=== PATIENT | female | born 1965 | race Asian ===

== ENCOUNTER 2019-08-27 17:24 | Emergency (ER) | payer MEDICAID ==
--- NOTE | 2019-08-27 18:05 | ER Document Report ---
ED General - General Chief Complaint: Back Pain Stated Complaint: BACK PAIN Time Seen by Provider: 08/27/19 18:01 Primary Care Provider: TONE HERNANDEZ PA-C [NO LOCAL MD] - Follow up in 1 week TRAVEL OUTSIDE OF THE [place] IN LAST 30 DAYS: No - HPI Notes: 54-year-old female to the emergency department with complaints of upper and low back pain as well as left knee pain after she sustained a fall today just prior to arrival. She states that she is going to go sit on a bench but she missed the bench and fell backwards onto her back. She admits that she has a slight headache with this. She denies neck pain. She denies loss of consciousness. She denies bladder or bowel dysfunction. She denies saddle paresthesia. She states that it hurts more when she walks. She has not taken anything prior to arrival for pain. She denies numbness and tingling down her leg. - Related Data Allergies/Adverse Reactions: No Known Allergies Allergy (Unverified 08/27/19 19:44) Past Medical History - General Information source: Patient - Social History Smoking Status: Never Smoker Frequency of alcohol use: None Drug Abuse: None Family History: Reviewed & Not Pertinent Review of Systems - Review of Systems Constitutional: denies: Chills, Fever EENT: No symptoms reported Cardiovascular: denies: Chest pain, Palpitations, Heart racing, Syncope Respiratory: denies: Cough, Short of breath Gastrointestinal: denies: Abdominal pain, Diarrhea, Nausea, Vomiting Genitourinary: denies: Burning, Flank pain, Incontinence, Retention Musculoskeletal: Back pain, Joint pain - left knee pain. thoracic and lumbar back pain Neurological/Psychological: No symptoms reported. denies: Gait changes, Loss of power, Numbness, Tingling -: Yes All other systems reviewed and negative Physical Exam - Vital signs Vitals: Temp Pulse Resp BP Pulse Ox 97.8 F 70 18 137/94 H 99 08/27/19 17:30 08/27/19 17:30 08/27/19 17:30 08/27/19 17:30 08/27/19 17:30 Interpretation: Normal - General General appearance: Appears well, Alert In distress: None - HEENT Head: Normocephalic, Atraumatic Eyes: Normal Pupils: PERRL - Respiratory Respiratory status: No respiratory distress Chest status: Nontender Breath sounds: Normal Chest palpation: Normal - Cardiovascular Rhythm: Regular Heart sounds: Normal auscultation Murmur: No - Abdominal Inspection: Normal Distension: No distension Bowel sounds: Normal Tenderness: Nontender Organomegaly: No organomegaly - Back Back: Tender - there is TTP over the midline thoracic and lumbar spine. There is no step off or deformity. negative SLR bilaterally. there is no TTP over the midline cervical neck. - Extremities General upper extremity: Normal inspection, Nontender, Normal color, Normal ROM, Normal temperature General lower extremity: Normal inspection, Nontender, Normal color, Normal ROM, Normal temperature, Normal weight bearing - Neurological Neuro grossly intact: Yes Cognition: Normal Orientation: AAOx4 [place] Coma Scale Eye Opening: Spontaneous [place] Coma Scale Verbal: Oriented [place] Coma Scale Motor: Obeys Commands Susan Coma Scale Total: 15 Speech: Normal Cranial nerves: Normal Cerebellar coordination: Normal Motor strength normal: LUE, RUE, LLE, RLE Additional motor exam normals: Equal fresh meat grader. No: Pronator drift Sensory: Normal - Psychological Associated symptoms: Normal affect, Normal mood - Skin Skin Temperature: Warm Skin Moisture: Dry Skin Color: Normal Course - Re-evaluation Re-evalutation: Lumbar Spine X-Ray 08/27/19 18:14 IMPRESSION: No acute fracture or malalignment of the lumbar spine. Thoracic Spine X-Ray 08/27/19 18:14 IMPRESSION: No acute fracture or malalignment of the lumbar spine. Knee X-Ray 08/27/19 18:15 IMPRESSION: Tricompartmental osteoarthrosis. No acute osseous abnormality or joint effusion. Impression: Fall, thoracic and lumbar strain. Left knee OA. Patient agrees with the plan. Will send home with medicines for pain control. PCP and ortho follow up. - Vital Signs Vital signs: Temp Pulse Resp BP Pulse Ox 97.9 F 62 16 125/72 98 08/27/19 19:42 08/27/19 19:42 08/27/19 19:42 08/27/19 19:42 08/27/19 19:42 Discharge - Discharge Clinical Impression: Arthritis of knee Fall Qualifiers: Encounter type: initial encounter Qualified Code(s): W19.XXXA - Unspecified fall, initial encounter Upper back strain Qualifiers: Encounter type: initial encounter Qualified Code(s): S29.012A - Strain of muscle and tendon of back wall of thorax, initial encounter Lumbar strain Qualifiers: Encounter type: initial encounter Qualified Code(s): S39.012A - Strain of muscle, fascia and tendon of lower back, initial encounter Strain of left knee Qualifiers: Encounter type: initial encounter Qualified Code(s): S86.912A - Strain of unsp ecified muscle(s) and tendon(s) at lower leg level, left leg, initial encounter Condition: Stable Disposition: HOME, SELF-CARE Instructions: Ice Packs ([facility]), Low Back Pain ([facility]), Muscle Strain ([facility]) Additional Instructions: Take medicines as prescribed. FOllow up with your orthopedist tomorrow without fail. Apply ice to the knee and to the back three times a day for 20 minutes at a time. Prescriptions: Cyclobenzaprine HCl [Flexeril 10 mg Tablet] 10 mg PO BID #12 tablet Lidocaine [Lidoderm 5% (700 mg) Transdermal Patch] 1 patch TP DAILY #30 adh..patch Naproxen [Naprosyn] 500 mg PO BID #20 tablet Referrals: TONE HERNANDEZ PA-C [NO LOCAL MD] - Follow up in 1 week
[2019-08-27] MEDS ORDERED: IBUPROFEN 800 MG TABLET PO ONE (18:15)
--- NOTE | 2019-08-27 19:07 | RADIOLOGY REPORT (SQ) ---
EXAM DESCRIPTION: KNEE LEFT 4 VIEW COMPLETED DATE/TIME: 08/27/2019 6:50 pm REASON FOR STUDY: knee pain, fall COMPARISON: None. NUMBER OF VIEWS: Four views. TECHNIQUE: AP, lateral, and both oblique radiographic images acquired of the left knee. LIMITATIONS: None. FINDINGS: MINERALIZATION: Normal. BONES: No acute fracture or dislocation. No osseous lesions. JOINT: Tricompartmental osteoarthrosis. No joint effusion. SOFT TISSUES: No soft tissue swelling. The quadriceps and patellar tendon silhouettes are intact. OTHER: No other finding. IMPRESSION: Tricompartmental osteoarthrosis. No acute osseous abnormality or joint effusion. TECHNICAL DOCUMENTATION: JOB ID: [id number] [employer]- All Rights Reserved Reading location - IP/workstation name: [email or web address]
--- NOTE | 2019-08-27 19:14 | RADIOLOGY REPORT (SQ) ---
EXAM DESCRIPTION: T SPINE AP/LAT COMPLETED DATE/TIME: 08/27/2019 6:50 pm REASON FOR STUDY: fall, back pain COMPARISON: None. NUMBER OF VIEWS: Two views. TECHNIQUE: AP and lateral radiographic images acquired of the thoracic spine. LIMITATIONS: None. FINDINGS: MINERALIZATION: Normal. ALIGNMENT: Normal. No scoliotic curvature. VERTEBRAE: No fracture or segmentation abnormality. DISCS: The intervertebral disc spaces are preserved. HARDWARE: None in the spine. MEDIASTINUM AND SOFT TISSUES: Normal cardiomediastinal silhouette. VISUALIZED LUNG CORADO: Clear. OTHER: No other finding. IMPRESSION: No acute fracture or malalignment of the lumbar spine. TECHNICAL DOCUMENTATION: JOB ID: [id number] [employer]- All Rights Reserved Reading location - IP/workstation name: [email or web address]
--- NOTE | 2019-08-27 19:14 | RADIOLOGY REPORT (SQ) ---
EXAM DESCRIPTION: L SPINE WHOLE COMPLETED DATE/TIME: 08/27/2019 6:50 pm REASON FOR STUDY: fall, back pain COMPARISON: None. NUMBER OF VIEWS: Five views including obliques. TECHNIQUE: AP, lateral, oblique, and sacral radiographic images acquired of the lumbar spine. LIMITATIONS: None. FINDINGS: MINERALIZATION: Normal. SEGMENTATION: There are 5 lumbar-type vertebral bodies. There is no transitional anatomy at the lumb osacral junction. ALIGNMENT: Normal. VERTEBRAE: The lumbar vertebral body heights are preserved. There is no fracture. DISCS: The intervertebral disc space heights are preserved. POSTERIOR ELEMENTS: The pedicles and facets are intact. There is no pars interarticularis defect. HARDWARE: None in the spine. PARASPINAL SOFT TISSUES: Normal. PELVIS: Intact. OTHER: No other finding. IMPRESSION: No acute fracture or malalignment of the lumbar spine. TECHNICAL DOCUMENTATION: JOB ID: [id number] [employer]- All Rights Reserved Reading location - IP/workstation name: [email or web address]
[2019-08-27 19:43] VITALS: BP 125/72
== END 2019-08-27 19:44 | disposition home or self-care (01) ==
LOC: ER 17:24
DX: S29.012A Strain of muscle and tendon of back wall of thorax, initial encounter (principal); S39.012A Strain of muscle, fascia and tendon of lower back, initial encounter; S86.912A Strain of unspecified muscle(s) and tendon(s) at lower leg level, left leg, initial encounter; R51 Headache; W19.XXXA Unspecified fall, initial encounter; Y93.89 Activity, other specified; M17.12 Unilateral primary osteoarthritis, left knee
CPT/HCPCS: 99283; 73564; 72110; 72070; J3490

== ENCOUNTER → 2020-01-06 | Outpatient (CLI) | payer MEDICAID | LOC: RAD 18:12 | PROVIDERS: ATTEND Specialist/Technologist Athletic Trainer | DX: M54.5 Low back pain (principal) | CPT/HCPCS: 72148 ==